=== PATIENT | male | born 1970 | race Caucasian/White ===

== ENCOUNTER 2019-03-23 20:56 | Emergency (ER) | payer BC ==
[~2019-03-23] VITALS: Ht 167.6 cm; Wt 70.0 kg
[2019-03-23 20:59] VITALS: BP 162/98
[2019-03-23] MEDS ORDERED: HYDROcodone/acetaminophen 10/325mg tab PO ONE (22:10)
== END 2019-03-23 22:41 | disposition home or self-care (01) ==
LOC: ER 20:57
DX: S82.452A Displaced comminuted fracture of shaft of left fibula, initial encounter for closed fracture (principal); Z88.8 Allergy status to other drugs, medicaments and biological substances; W22.8XXA Striking against or struck by other objects, initial encounter; Y93.89 Activity, other specified; Y92.89 Other specified places as the place of occurrence of the external cause; Y99.8 Other external cause status
CPT/HCPCS: 29515; 73610; 99283